=== PATIENT | male | born 1955 | race Caucasian/White ===

== ENCOUNTER 2017-01-03 08:25 | Outpatient (CLI) | payer OTHER ==
--- NOTE | 2017-01-03 12:59 | DIAGNOSTIC IMAGING REPORT ---
PROCEDURE: MR UPPER EXTREMITY W/O CONT-LT INDICATION: LT SHOULDER ROTATOR CUFF TEAR TECHNIQUE: PD and PD fat sat axial, T1 and PD fat sat coronal, PD and STIR sagittal sequences through the shoulder. COMPARISON: Outside plain films 11/13/2016 FINDINGS: Rotator cuff: Thickening, extensive undersurface irregularity and intermediate to increased signal involving the supraspinatus and infraspinatus tendons. There is attenuation and irregularity of the anterior distal portion of the supraspinatus tendon with surrounding fluid signal suggestive of partial tearing , mainly involving the undersurface. Undersurface irregularity involving the supraspinatus myotendinous junction proximally at the level of the glenohumeral joint (series 5 image 10 and 11). Thickening, intermediate signal, and fluid is surrounding the subscapularis tendon. Biceps tendon: The intra-articular portion the biceps tendon is difficult to visualize and probably demonstrates intermediate signal. The images it is visible on demonstrate attenuation of the tendon caliber. As it courses into the bicipital groove, its caliber is diminutive and there is a moderate amount of fluid in the biceps tendon sheath. There is abnormal thickening of the coracohumeral ligament of the rotator interval. The superior glenohumeral ligament is suboptimally seen. The transverse humeral ligament over the bicipital groove appears grossly intact. Osseous structures and articular surfaces: Subcortical cystic changes involve the posterolateral humeral head at the rotator cuff insertion site. There are also subcortical cystic changes of the anteromedial humeral head along the lesser tuberosity Degenerative hypertrophy, articular surface irregularity, edema, and subcortical cystic changes are present on both sides of the acromioclavicular joint. Joint hypertrophy mild to moderately indents on the rotator myotendinous junction. The acromion is type 3 with conventional anatomy. No lateral downsloping. There is mild cartilage thinning over the humeral head laterally. Glenoid cartilage surface is minimally irregular but otherwise fairly well maintained. There is osseous irregularity and spurring along the inferior aspect of the glenoid. Labral ligamentous complex: Diffuse intermediate signal involving the entire superior labrum. Detached, diminutive anterior labrum with fairly prominent middle glenohumeral ligament posterior labrum is intact. Anterior inferior glenohumeral ligament demonstrates intermediate signal. Fluid, soft tissues, and joint space: Glenohumeral joint effusion layering dependently in the axillary recess, decompressed proximally around the subscapularis tendon, and decompressed into the infraspinatus along the myotendinous junction. There is atrophy, edema, and irregularity of the anterior muscle belly of the supraspinatus. Small subacromial subdeltoid bursal effusion. No paralabral cysts. IMPRESSION: 1. Extensive tendinopathy and partial undersurface tearing of the rotator cuff supra and infraspinatus tendons. This is likely secondary to AC joint impingement. Atrophy and edema of the anterior supraspinatus muscle is seen. 2. There is moderate chronic-appearing tendinopathy of the subscapularis tendon distally. 3. Superior and probable anterior labral tears. Prominence of the middle glenohumeral ligament raises the possibility of presence of a [place] complex. Probable strain of the anterior inferior glenohumeral ligament. Further evaluation of the labral ligamentous complex with MR arthrography may be helpful if clinically indicated. 4. Tendinopathy and longitudinal partial tearing of the intrarticular biceps tendon. There is likely strain of the rotator interval structures. 5. Small glenohumeral joint effusion. 6. Subcortical cystic changes at the AC joint, lesser tuberosity, and greater tuberosity of the humeral head.
== END 2017-01-03 23:00 | disposition home or self-care (01) ==
LOC: MRI SRH 08:25
DX: M75.102 Unspecified rotator cuff tear or rupture of left shoulder, not specified as traumatic (principal); M75.92 Shoulder lesion, unspecified, left shoulder; S43.492A Other sprain of left shoulder joint, initial encounter; M25.412 Effusion, left shoulder